=== PATIENT | female | born 1940 | race Caucasian/White ===

== ENCOUNTER 2018-04-12 10:06 | Emergency (ER) | payer OTHER ==
[2018-04-12 10:12] VITALS: BMI 26.2
[2018-04-12 10:38] VITALS: O2SAT 98
--- NOTE | 2018-04-12 10:50 | C.PDOC ---
History Of Present Illness 77 y/o female with htn, thyroid problem [facility] from [facility] s/p near syncopal episode. pt was her normal self this morning, and developed diarrhea while in [facility]. pt was in bathroom for long time at [facility] with watery stool, then left and returned to bathroom for another longno head injury. no chest pin. period. pt felt lightheaded and weak when standing up after bm, so sat on ground and rested head on toilet seat. pt did not pass out. no head injury. no chest pain. Time Seen by Provider: 04/12/18 10:33 Chief Complaint (Nursing): Syncope History Per: Patient History/Exam Limitations: no limitations Past Medical History Reviewed: Historical Data, Nursing Documentation, Vital Signs Vital Signs: Last Vital Signs Temp 98.0 F 04/12/18 10:15 Pulse 70 04/12/18 10:15 Resp 14 04/12/18 10:15 BP 143/59 L 04/12/18 10:15 Pulse Ox 98 04/12/18 10:15 - Medical History PMH: HTN, Hypercholesterolemia Family History: States: No Known Family Hx - Social History Hx Alcohol Use: No Hx Substance Use: No - Immunization History Hx Tetanus Toxoid Vaccination: No Hx Influenza Vaccination: No Hx Pneumococcal Vaccination: No Review Of Systems Constitutional: Positive for: Other (s/p near syncope) Cardiovascular: Negative for: Chest Pain Gastrointestinal: Positive for: Diarrhea Musculoskeletal: Negative for: Other (head injury) Neurological: Positive for: Weakness, Other (lightheadedness) Physical Exam - Physical Exam Appears: Non-toxic, No Acute Distress Skin: Warm, Dry Head: Atraumatic, Normacephalic Eye(s): bilateral: PERRL, EOMI Oral Mucosa: Dry Lips: Other (chapped ) Chest: Symmetrical Cardiovascular: Rhythm Regular Respiratory: Normal Breath Sounds, No Rales, No Rhonchi, No Wheezing Gastrointestinal/Abdominal: Soft, No Tenderness Neurological/Psych: Oriented x3, Normal Speech, Normal Cognition, Normal Motor, Normal Sensation Gait: Steady ED Course And Treatment - Laboratory Results Result Diagrams: 04/12/18 11:03 04/12/18 11:03 ECG: Interpreted By Me, Viewed By Me ECG Interpretation: Normal, No Changes From Prior (03/08/2015 ) Interpretation Of ECG: ST & T wave abnormality Rate From EC O2 Sat by Pulse Oximetry: 98 (RA) Pulse Ox Interpretation: Normal Medical Decision Making Medical Decision Making: Plans: -- EKG -- Chem labs -- Blood work -- IV fluids 1430 pt ambulating around ED with no difficulty, not lightheaded. pt still having some diarrhea. given 40 mEq potassium replacement. pt feels well. will d/c with instructions to f/u pmd 1-2 days . Disposition - Disposition Referrals: Brianda Reis MD [Medical Doctor] - Disposition: HOME/ ROUTINE Disposition Time: 14:46 Condition: GOOD Additional Instructions: Mientras tenga diarrea, asegrese de rolan ms lquidos para compensar la prdida de agua. Coma alimentos aglutinantes celia la compota de manzana, el pltano (tambin simmons para el potasio), el arroz buchanan comn, las tostadas y el t. Seguimiento con el Dr. Reis en 1- = 2 rivas; volver a la primo de emergencias por cualquier empeoramiento de los sntomas, desmayos ,. Frias azcar est ligeramente elevada aqu en ED-186 y 165; Asegrese de seguir esto con frias mdico, as celia calvin pequea cantidad de siddhartha en la orina. While you have diarrhea, be sure to drink increased fluids to make up for water loss. Eat binding foods such as applesauce, banana (Also good for potassium), plain white rice, toast and tea. Follow up with Dr Reis in 1-=2 days; return to ER for any worsening symptoms, fainting,. Your sugar is mildly elevated here in ED- 186 and 165; please make sure to follow this up with your doctor, as well as small amount of blood in urine. Instructions: Diarrhea and Traveler's Diarrhea, Adult (DC), Hypokalemia (DC) Forms: Gen Discharge Inst [place], [facility] ([place]) - Clinical Impression Clinical Impression: Near syncope, Diarrhea, Hypokalemia due to loss of potassium - PA / HEARING DOG TRAINER / Resident Statement MD/DO has reviewed & agrees with the documentation as recorded. - Scribe Statement The provider has reviewed the documentation as recorded by the Scribe Price All medical record entries made by the Mony were at my direction and personally dictated by me. I have reviewed the chart and agree that the record accurately reflects my personal performance of the history, physical exam, medical decision making, and the department course for this patient. I have also personally directed, reviewed, and agree with the discharge instructions and disposition.
[2018-04-12] MEDS ORDERED: Sodium Chloride 0.9% 500 ML IV ONE ×2 (10:51→13:31)
[2018-04-12 11:12] LABS: BASO % 0.4 % (0.0-2.0); EOS # 0.2 K/uL (0.0-0.7); EOS % 2.4 % (0.0-4.0); HEMOGLOBIN 11.6 g/dL (11.0-16.0); LYMPH # 2.5 K/uL (1.0-4.3); LYMPH % 34.9 % (20.0-40.0); MEAN CELL VOLUME 77.6 fL (81.0-99.0); MEAN CORPUSCULAR HEMOGLOBIN 25.7 pg (27.0-31.0); MEAN PLATELET VOLUME 7.5 fL (7.2-11.7); MONO # 0.4 K/uL (0.0-0.8); MONO % 5.7 % (0.0-10.0); NEUT % 56.6 % (50.0-75.0); RBC 4.54 Mil/uL (3.80-5.20); RED CELL DISTRIBUTION WIDTH 15.9 % (11.5-14.5); WHITE BLOOD COUNT 7.1 K/uL (4.8-10.8)
[2018-04-12 11:58] LABS: ALB/GLOB RATIO 1.2 (1.0-2.1); ALBUMIN 4.1 g/dL (3.5-5.0); ALT/SGPT 28 U/L (9-52); AST/SGOT 42 U/L (14-36); BLOOD UREA NITROGEN 15 mg/dL (7-17); CALCIUM 9.4 mg/dl (8.6-10.4); GFR NON-AFRICAN AMERICAN > 60
[2018-04-12] MEDS ORDERED: Potassium Chloride 20 mEq ER Tab PO STA (12:04)
[2018-04-12] MEDS ORDERED: Potassium Chloride 20 mEq ER Tab PO ONE ×2 (12:28→13:33)
[2018-04-12 14:33] LABS: SQUAMOUS EPITHIAL < 1 /hpf (0-5); URINE BACTERIA RARE (<OCC); URINE BILIRUBIN NEGATIVE (NEGATIVE); URINE BLOOD 2+ (NEGATIVE); URINE CLARITY Clear (Clear); URINE COLOR Straw (YELLOW); URINE GLUCOSE (UA) NORMAL (Normal); URINE LEUKOCYTE ESTERASE NEG Leu/uL (Negative); URINE PROTEIN NEGATIVE (NEGATIVE); URINE UROBILINOGEN NORMAL mg/dL (0.2-1.0)
[2018-04-12 14:59] VITALS: BP 174/71; PULSE 72; RESP 18; TEMP 98.1
--- NOTE | 2018-04-13 22:38 | CARD ---
APPROVED REPORT Date of service: 04/12/2018 EKG Measurement Heart [id number] <Conclusion> Normal sinus rhythm ST & T wave abnormality, consider anterior ischemia Abnormal ECG
== END 2018-04-12 15:05 | disposition home or self-care (01) ==
LOC: C.ER 10:06
DX: R55 Syncope and collapse (principal); R19.7 Diarrhea, unspecified; E87.6 Hypokalemia; E78.00 Pure hypercholesterolemia, unspecified; I10 Essential (primary) hypertension
CPT/HCPCS: 80053; 81001; 82948; 84484; 85025; 93005; 96360; 99285; J7030; J7040